=== PATIENT | male | born 1980 | race Caucasian/White ===

== ENCOUNTER 2020-01-20 18:36 | Inpatient (IN) | payer OTHER ==
[~2020-01-20] VITALS: Ht 185.4 cm; Wt 95.3 kg
[2020-01-20 18:44] VITALS: BP 129/93
[2020-01-20 19:31] LABS: ABSOLUTE BASOPHILS 0.1 thou/uL (0.0-0.2); ABSOLUTE EOSINOPHILS 0.4 thou/uL (0.0-0.7); ABSOLUTE MONOCYTES 1.1 thou/uL (0.0-1.2); ABSOLUTE NEUTROPHILS 13.1 thou/uL (1.6-8.1); BASOPHILS 0.3 %; EOSINOPHILS 2.3 %; HEMATOCRIT 49.6 % (42.0-52.0); HEMOGLOBIN 17.5 gm/dL (14.0-18.0); MCH 31.5 pg (26.0-34.0); MCHC 35.3 g/dL (28.0-37.0); MCV 89.2 fL (80.0-100.0); MONOCYTES 6.7 %; MPV 7.9 fl. (7.2-11.1); NUCLEATED RBCS 0 /100WBC; PLATELET COUNT* 338 thou/uL (150-400); POLYS 78.7 %; RBC 5.56 mil/uL (4.50-6.00); RDW-CV 13.8 % (10.5-14.5); WBC 16.6 thou/uL (4.0-11.0)
[2020-01-20 19:35] LABS: CREATININE 1.1 mg/dL (0.6-1.3); POTASSIUM 3.9 mmol/L (3.5-5.1)
[2020-01-20 19:40] LABS: ALBUMIN 3.6 g/dL (3.4-5.0); TOTAL BILIRUBIN 0.7 mg/dL (<0.1-1.0); TOTAL PROTEIN 8.4 g/dL (6.4-8.2)
[2020-01-20 21:59] VITALS: BP 123/81
--- NOTE | 2020-01-21 06:52 | NUR ---
PATIENT UP FROM ER TO ROOM 119. PT ALERT/ORIENTED X4, PLEASANT. PT SAID WOUNDS ON FEET STARTED THREE DAYS AGO AND PAIN BECAME INTOLERABLE SO CAM TO HOSPITAL. RT FOOT WITH RED, WARM EDEMA ON ANKLE AND TOP OF FOOT. BOTTOM OF FOOOT (BALL OF FOOT) WITH GREEN/YELLOW PURULENT WEEPING DRAINAGE. LT FOOT WITH WHAT APPEARS TO BE AN ATHELETE'S FOOT FUNGUS WITH GREEN/YELLOW WEEPING DRAINAGE BETWEEN TOES. FEET AND TOES CLEANED WITH WOUND SPRAY, PATTED DRY WITH 4X4 GAUZE AND GAUZE PLACED OVER BALL OF FOOT ON RT FOOT, WRAPPED WITH FLUFF GAUZE. LT FOOT CLEANED WITH WOUND SPRAY, PATTED DRY AND DRIED BETWEEN TOES. 4X4 GAUZE FOLDED AND PLACED BETWEEN DOES, WRAPPED WITH FLUFF GAUZE. PT INSTRUCTED TO CALL FOR ASSISTANCE PRIOR TO GETTING OUT OF BED. PT ORIENTED TO ROOM/POLICIES AND VERBALIZES UNDERSTANDING. PT GIVEN TORADOL IN ER BUT DENIES NEEDS FOR PAIN MEDS AT THIS TIME. WILL CONTINUE TO MONITOR.
[2020-01-21 08:00] VITALS: BP 121/73
[2020-01-21 15:44] VITALS: BP 133/70
--- NOTE | 2020-01-21 19:06 | NUR ---
PATIENT RESTING IN BED. PATIENT HAS COMPLAINTS OF PAIN TO FEET, TREATED ADEQUATELY WITH HYDROCODONE. PATIENT USES URINAL. PATIENT HAS GOOD APPETITE. PATIENT DENIES ANY NEEDS AT THIS TIME. CALL LIGHT WITHIN REACH.
[2020-01-22 02:08] LABS: GLYCOHEMOGLOBIN (HGB A1C) 5.4 % (4.8-5.6)
--- NOTE | 2020-01-22 04:05 | NUR ---
PATIENT SLEPT WELL DURING THIS SHIFT. VANCOMYACIN ALMOST COMPLETE WHEN IV IN LT UPPER ARM INFUSED NEAR ELBOW. NEW IV STARTED IN RT AC AND FLUIDS CONTINUED ORDERED. PT VOIDS DARK YELLOW URINE PER URINAL. PT ENCOURAGED TO CALL IF NEEDING TO GO TO BATHROOM FOR BM. 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 PT DID NOT ASK FOR PAIN MEDICATION. PT IS PLEASANT, COOPERATIVE. FREQUENTLY USED ITEMS AND CALL LIGHT WITHIN REACH. SIDERAILS UPX2. WILL CONTINUE TO MONITOR.
[2020-01-22 08:10] VITALS: BP 121/79
--- NOTE | 2020-01-22 08:54 | NUR ---
WOUND NURSE: PATIENT WAS SEEN BY DR. PEREZ WHO MANAGED HIS WOUND AND DRESSING CHANGE YESTERDAY. PATIENT WAS NOT SUBSEQUENTLY SEEN BY THIS NURSE A RESULT.
--- NOTE | 2020-01-22 10:28 | NUR ---
Nutrition: Pt admitted with Rt foot cellulitis and Lt foot ulcer. Wt: 210#. Vanc. Regular diet, good appetite. BG 167, albumin 3.6. Protein stores are adequate, will not order protein supplement at this time. Appears nutritionally stable. GOAL: continue good po and protein intake at meals, control BG. Low risk.
--- NOTE | 2020-01-22 11:29 | CON ---
[address] [address] CONSULTATION Name: COLE HERRING Room: [address] IN M.R.#: [id number] Admission: 01/20/20 Attend Phys: Phillip Vega Discharge: Date of : 76 Report #: [id number] THIS REPORT FOR: //name// cc: JORDAN Ye family physician/PCP JORDAN Ye family physician/PCP ~ THIS REPORT FOR: //name// CC: JORDAN physician/PCP Phillip Girard DATE OF SERVICE: 01/21/2020 INFECTIOUS DISEASE CONSULTATION ATTENDING PHYSICIAN: Phillip Girard MD REASON FOR EVALUATION: Inflammatory process involving the left foot, suspected skin and soft tissue infection with cellulitis, plantar ulcerations bilaterally. HISTORY OF PRESENT ILLNESS: Chart reviewed, patient examined. This is a 39-year-old male who reportedly has not been aware of any significant past medical history, who came to the ER complaining of right foot pain with associated redness 3 days prior. Denies any antecedent injury. 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 He did note some generalized systemic illness with body aches and chills, nausea day prior to admission. Evaluation noted elevated white count of 16.6, glucose of 167, lactic acid 1.9. Plain film of the right foot suggested plantar ulcer. No bony abnormalities. Blood cultures now with 1 out 2 Gram-positive christine. He is empirically started on antibiotics with ceftriaxone and vancomycin. He is not overtly toxic. Denies any pulmonary or gastrointestinal-related complaints. No other exposure history that he is aware of. ALLERGIES: None known. CURRENT MEDICINES: Include ceftriaxone, vancomycin, hydrocodone, ondansetron as needed. PAST MEDICAL HISTORY: Otherwise, unremarkable. There is question of some new onset hyperglycemia. SOCIAL HISTORY: A [id number] history of smoking 1 pack a day. Does use marijuana. No injection drug use. No ethanol. FAMILY HISTORY: Noncontributory. REVIEW OF SYSTEMS: Otherwise, [place] [address] CONSULTATION Name: COLE HERRING Room: [address] IN [facility]#: [id number] Admission: 01/20/20 Attend Phys: Phillip Vega Discharge: Date of : 76 Report #: [id number] PHYSICAL EXAMINATION: GENERAL: He is alert, cooperative, in mild distress. He is generally lucid, appears reasonably well nourished. VITAL SIGNS: Temperature 98.3, pulse 84, respirations 16, blood pressure 120/73. SKIN: Warm, dry. He has extensive tattoos. HEENT: Normocephalic. Extraocular muscles intact. NECK: Supple. LUNGS: Otherwise clear breath sounds. HEART: Regular. I do not appreciate any murmur. ABDOMEN: Soft, nontender, no peritoneal signs. EXTREMITIES: Bilateral lower extremities have dressings in place. Did review the photographs taken earlier today because of necrotic changes with blackened eschar over the plantar aspect of the feet, has moderate degree of inflammation. GENITOURINARY: Deferred. RECTAL: Deferred. LABORATORY DATA: CBC: White count 16.6, H and H 17.5 and 49.6, platelets of 338. Differential unremarkable with the exception of neutrophilia. Electrolytes: Sodium 135, potassium 3.9, chloride 99, bicarbonate is 29, anion gap of 7, BUN and creatinine 14 and 1.1, glucose of 167. LFTs unremarkable. Albumin 3.6, total protein of 8.4. Lactic acid of 1.9. Foot x-ray as described above. Blood culture 1 out 2 with Gram-positive christine. ASSESSMENT AND PLAN: Bilateral distal lower extremity wounds complicated by infection. It certainly raises suspicion for some underlying issues such as diabetes mellitus. It is reasonable to check a hemoglobin A1c. Continue wound care as prescribed, empiric antimicrobial should give as reasonable coverage. At this point, he is not overtly toxic. We will add incentive spirometry to his overall regimen. He may end up needing debridement of the wounds. <ELECTRONICALLY SIGNED> By: Cole Pritchett MD 01/22/20 1129 1310 [id number] Pritchett MD /nt
[2020-01-22 16:00] VITALS: BP 133/84
--- NOTE | 2020-01-22 18:51 | NUR ---
PATIENT RESTING IN BED. PATIENT HAS COMPLAINTS OF PAIN TREATED ADEQUATELY WITH PO PAIN MEDICATION. DRESSING REAPPLIED THIS AFTERNOON AFTER REMOVED BY PHYSICIAN. ORDER RECEIVED FOR BREAKTHROUGH PAIN MEDICATION WITH DRESSING CHANGES. PATIENT DENIES ANY NEEDS AT THIS TIME. CALL LIGHT WITHIN REACH.
[2020-01-22 20:00] VITALS: BP 136/82
--- NOTE | 2020-01-23 06:22 | NUR ---
ASSESSMENTS COMPLETED AT BEDSIDE, PLEASE REFER TO CHARTING. MEDICATIONS ADMINISTERED PER MAR. HOURLY ROUNDING COMPLETED FOR SAFETY. PT IN BED WITH CALL LIGHT WITHIN REACH. PT NON-WEIGHT BEARING, CALLS OUT APPROPRIATELY.
[2020-01-23 08:20] VITALS: BP 122/70
[2020-01-23 16:00] VITALS: BP 137/86
--- NOTE | 2020-01-23 16:30 | NUR ---
SPOKE WITH PT.IN ROOM. HE SAID HE LIVES WITH HIS GIRLFRIEND AND KIDS IN AN APT. 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 JUST GOT HIS JOB BACK AT [employer] BEFORE THIS SO NOT SURE IF HE WILL HAVE IT WHEN HE IS ABLE TO GO BACK TO WORK. HE HAS CRUTCHES BUT ARE TOO SHORT FOR HIM. TOLD HIM THE HOSPITAL COULD PROVIDE A PAIR FOR HIM BUT HE WOULD HAVE TO SIGN PAPER THAT HE WOULD PAY FOR THEM. THEY WOULD BE PUT ON HIS HOSPITAL BILL. HE COULD ALSO GET SOME POSSIBLY AT A [employer]. RECOMMENDS WOUND CARE. TOLD HIM IF HE QUALIFIED FOR [facility], HE COUDL GO THERE FOR WOUND CARE. WILL PUT PHONE NUMBER ON DISCHARGE INSTRUCTIONS FOR HIM TO CALL TO DISCUSS. HE THINKS HE CAN AFFORD HIS ORAL ANTIBIOTIC AT DISCHARGE. HE WOULD LIKE NURSE TO CALL IN TO [facility] ON [address] ([facility]) TO SEE HOW MUCH THEY WILL BE. HE SAID HIS MOM TOLD HIM SHE WOULD PAY FOR THEM IF THEY ARE TOO MUCH FOR HIM. [id number].
[2020-01-23 19:33] VITALS: BP 137/86
--- NOTE | 2020-01-23 19:37 | NUR ---
PATIENT RESTING IN BED. PATIENT HAS COMPLAINTS OF PAIN TO FEET, TREATED ADEQUTELY WITH MEDICATION AND REST. PATIENT SEEN BY DR PEREZ THIS EVENING AND DRESSING CHANGED TO RIGHT FOOT. PATIENT RECEIVING ANTIBIOTICS ORDERED. PATIENT DENIES ANY NEEDS AT THIS TIME. CALL LIGHT WITHIN REACH.
[2020-01-23 20:30] VITALS: BP 115/64
--- NOTE | 2020-01-24 07:37 | NUR ---
PT SLEPT OFF AND ON OVERNIGHT. USING URINAL TO VOID WITHOUT DIFFICULTY. PO PAIN MED GIVEN AT HS WITH GOOD RESULT. DRSG CDI TO R FOOT. RFA IVF INFUSING PER PUMP, ABX GIVEN ORDERED. NO LABS THIS MORNING. CM FOLLOWING PT WILL NEED WOUND CARE OUTPT. ABLE TO USE CALL LITE AND MAKE NEEDS KNOWN.
[2020-01-24 07:40] VITALS: BP 141/76
[2020-01-24 13:56] LABS: ABSOLUTE BASOPHILS 0.1 thou/uL (0.0-0.2); ABSOLUTE EOSINOPHILS 0.6 thou/uL (0.0-0.7); ABSOLUTE LYMPHOCYTES 2.2 thou/uL (0.8-5.3); ABSOLUTE MONOCYTES 0.7 thou/uL (0.0-1.2); ABSOLUTE NEUTROPHILS 8.6 thou/uL (1.6-8.1); BASOPHILS 0.9 %; EOSINOPHILS 4.5 %; HEMATOCRIT 49.1 % (42.0-52.0); MCH 31.4 pg (26.0-34.0); MCHC 34.7 g/dL (28.0-37.0); MCV 90.7 fL (80.0-100.0); MONOCYTES 5.8 %; MPV 7.2 fl. (7.2-11.1); NUCLEATED RBCS 0 /100WBC; PLATELET COUNT* 376 thou/uL (150-400); POLYS 70.8 %; RBC 5.41 mil/uL (4.50-6.00); RDW-CV 13.7 % (10.5-14.5); WBC 12.2 thou/uL (4.0-11.0)
[2020-01-24 14:09] LABS: CALCIUM 8.5 mg/dL (8.5-10.1); POTASSIUM 4.5 mmol/L (3.5-5.1); TOTAL BILIRUBIN 0.3 mg/dL (<0.1-1.0); TOTAL PROTEIN 7.8 g/dL (6.4-8.2)
--- NOTE | 2020-01-24 16:13 | NUR ---
PATIENT VOIDING PER URINAL. IV SL THIS EVENING PER ORDERS. DR. CASTILLO AND DR. OLIVAS NOTIFIED OF FOOT WOUND CULTURE RESULTS. DR. CASTILLO DC'D PCN IV AND ORDERED CEFAZOLIN. PATIENT AWARE OF NEW PLAN OF CARE. DRESSING TO RIGHT FOOT INTACT, SPOKE WITH DR. PEREZ AND WILL SEE PATIENT THIS EVENING AND CHANGE DRESSING. PATIENT HAS PERSONAL PHONE AND IS IN CONTACT WITH FAMILY ON PLAN OF CARE.
[2020-01-24 17:38] VITALS: BP 142/73
[2020-01-24 19:30] VITALS: BP 135/75
--- NOTE | 2020-01-25 05:30 | NUR ---
PT ALERT AND ORIENTED. PT SLEPT WELL THIS SHIFT. MEDS GIVEN PER EMAR. PT DENIED PAIN THIS SHIFT. DRESSING C/D/I. FALL PRECAUTION IN PLACE. HOURLY ROUNDIGNS MADE. WILL CONTINUE TO MONITOR.
[2020-01-25 08:30] VITALS: BP 112/53
--- NOTE | 2020-01-25 16:12 | NUR ---
PATIENT UP AND SHOWERED THIS AM. WOUND DRESSING TO FOOT CHANGED PER PROTOCOL AND SUNDAY PHOTO OBTAINED. IV ABX GIVEN ORDERED, OTHERWISE IV SL. PATIENT VOIDING LARGE AMOUNTS OF URINE PER URINAL. POST OP SHOE ORDERED FOR PATIENT. POSSIBLE DISCHARGE TOMORROW.
[2020-01-25 20:00] VITALS: BP 134/72
[2020-01-26 04:07] LABS: HEMATOCRIT 50.1 % (42.0-52.0); HEMOGLOBIN 17.7 gm/dL (14.0-18.0); MCH 31.6 pg (26.0-34.0); MCHC 35.3 g/dL (28.0-37.0); MCV 89.5 fL (80.0-100.0); MPV 7.3 fl. (7.2-11.1); RBC 5.6 mil/uL (4.50-6.00); RDW-CV 13.7 % (10.5-14.5); WBC 12.2 thou/uL (4.0-11.0)
[2020-01-26 04:30] LABS: CALCIUM 8.7 mg/dL (8.5-10.1); CREATININE 1.1 mg/dL (0.6-1.3); POTASSIUM 4.3 mmol/L (3.5-5.1)
--- NOTE | 2020-01-26 07:22 | NUR ---
PT SLEPT WELL THIS SHIFT. MEDS GIVEN PER EMAR. DR PEREZ CALLED TO CONFIRM I&D TODAY @ NOON. DAYSHIFT NURSE INFORMED. CALL LIGHT WITHIN REACH. HOURLY ROUNDINGS MADE. WILL CONTINUE TO MONITOR.
[2020-01-26 08:30] VITALS: BP 122/68
[2020-01-26] MEDS ORDERED: HYDROCODON-ACE1 EAC7 PO (11:51)
[2020-01-26] MEDS ORDERED: AUGMENTIN 875-1 EACH PO (12:30)
[2020-01-26] MEDS ORDERED: DIFLUCAN200 MG PO (12:31)
[2020-01-26 12:35] VITALS: BP 137/86
[2020-01-26 12:38] VITALS: BP 137/86
[2020-01-26 15:08] VITALS: BP 137/86
--- NOTE | 2020-01-26 15:44 | NUR ---
PATIENT DISCHARGED FROM UNIT AT 1537. ALERT AND ORIENTED X 4. VITAL SIGNS STABLE ON ROOM AIR. UP WITH ASSISTANCE TO WHEELCHAIR. ORTHO SHOE IN PLACE TO RIGHT FOOT. DRESSING CLEAN DRY AND INTACT. IV DISCONTINUED. DENIES PAIN AND NAUSEA AT THIS TIME. MEDICATION INFORMATION AND DISCHARGE INSTRUCTIONS GIVEN TO PATIENT. LEFT WITH ALL BELONGINGS. PATIENT LEFT WITH VIA CAR.
[2020-01-26 16:17] VITALS: BP 137/86
--- NOTE | 2020-01-26 16:43 | NUR ---
WOUND NURSE: ASSISTED DR. PEREZ WITH DRESSING CHANGE AFTER PERFORMED I&D ON PATIENT'S AFFECTED FOOT. PATIENT DISCHARGING FROM ACUTE CARE AND TO FOLLOW UP AT [facility].
--- NOTE | 2020-02-04 13:07 | CON ---
[address] [address] CONSULTATION Name: NABEEL HERRING Room: [address] IN M.R.#: [id number] Admission: 01/20/20 Attend Phys: Phillip Vega Discharge: 01/26/20 Date of : 76 Report #: [id number] THIS REPORT FOR: //name// cc: JORDAN Ye family physician/PCP JORDAN - No family physician/PCP ~ THIS REPORT FOR: //name// CC: JORDAN physician/PCP Phillip Girard DATE OF SERVICE: 01/26/2020 CHIEF COMPLAINT AND HISTORY OF PRESENT ILLNESS: Followup of ulceration with cellulitis to the right plantar foot that grew methicillin-sensitive Staph aureus and group A streptococcus. He is on parenteral cefazolin with good tolerance with planned discharge today on cephalexin. He has been afebrile, relates decreased right plantar foot pain. He maintains a good appetite. PHYSICAL EXAMINATION: There is a substantial decrease in inflammation to the right foot with complete healing of the right plantar forefoot ulcerations. No venkata cellulitis to the right distal plantar foot. The inflamed bulla at the right dorsal medial hindfoot is substantially less inflamed and more of a purple color versus bright red, as it had been. Foot is warm with palpable pedal pulses, no signs of acute vascular embarrassment. Left foot lesions are dry and healed without inflammation. LABORATORY DATA: WBC 12.2, RBC 5.60, hemoglobin 17.7, hematocrit 50.1 and platelets 380. BUN 21, creatinine 1.1, glucose 94. Albumin 3.0. IMPRESSION: Resolving cellulitis bilateral feet with healed plantar forefoot ulcerations and bulla to the right dorsal medial hindfoot. PLAN: I performed an informed consent and injected 6 mL of 1% lidocaine with epinephrine proximal to the bulla to the right hindfoot. Anesthesia was adequate and I made a 1 cm incision over the bulla and drained roughly 2 mL of sanguinous fluid with no visualized purulence. The wound was cleansed and dressed with Aquacel Ag, 4 x 4, and Kerlix gauze. The patient to ambulate in a surgical shoe and bathe his feet daily and lotion. I will follow up with him next week in my office or he can go to [facility]. <ELECTRONICALLY SIGNED> By: Vinnie Chavira DPM 02/04/20 1307 1217 [id number] Chavira DPM /nt
--- NOTE | 2020-02-04 13:07 | CON ---
[address] [address] CONSULTATION Name: NABEEL HERRING Room: [address] IN M.R.#: [id number] Admission: 01/20/20 Attend Phys: Phillip Vega Discharge: 01/26/20 Date of : 76 Report #: [id number] THIS REPORT FOR: //name// cc: JORDAN Ye family physician/PCP JORDAN - Cassi family physician/PCP ~ THIS REPORT FOR: //name// CC: JORDAN physician/PCP Phillip Girard DATE OF SERVICE: 01/21/2020 ADMISSION DIAGNOSIS: Diabetic ulceration, right foot with cellulitis. HISTORY OF PRESENT ILLNESS: The patient is a 39-year-old male admitted for worsening cellulitis to the right plantar foot. He first noticed some open lesions roughly 4 days ago of unknown etiology. He denies walking barefoot on hot surfaces, submersion, blisters or any type of trauma to the foot. He has several wounds to the left first, second, third interdigital spaces. He is on parenteral vancomycin and ceftriaxone. Admission wound cultures growing gram-negative rods, gram-positive rods, and gram-positive cocci. Blood cultures pending with no growth so far. He has high-grade pain to the right foot, exquisitely painful to light touch. He has been afebrile since admission. X-rays were negative for subcutaneous emphysema or signs of osteomyelitis. LABORATORY DATA: WBC 16.6, RBC 5.56, hemoglobin 17.5, hematocrit 49.6, platelets 338. BUN 14, creatinine 1.1, glucose 167. PHYSICAL EXAMINATION: Large full thickness ulceration to the right plantar forefoot encompassing nearly the entire ball of the foot. The wound is roughly 40% granulation and 60% yellowish pale slough. There is localized inflammation to the plantar foot extending to the dorsal aspect and lower ankle consistent with cellulitis. The foot is exquisitely tender to the touch. He has several full thickness ulcerations to the interdigital spaces of the left foot with minimal inflammation and no venkata cellulitis. He has palpable dorsalis pedis and posterior tibial pulses bilaterally with immediate digital capillary refill. IMPRESSION: Bilateral foot ulcerations, right is severely involved including most of the ball of the foot. PLAN: I do not anticipate any surgical debridement. Continue parenteral antibiotics and await culture results. I cleansed the right foot wound and dressed it with petroleum Xeroform gauze, ABD and Kerlix gauze. The patient to remain strictly nonweightbearing to the right foot. [place] [address] CONSULTATION Name: NABEEL HERRING Room: [address] IN M.R.#: [id number] Admission: 01/20/20 Attend Phys: Phillip Vega Discharge: 01/26/20 Date of : 76 Report #: [id number] day or 2, we will transition to partial weightbearing to the heel in a surgical shoe with crutches. <ELECTRONICALLY SIGNED> By: Vinnie Chavira DPM 02/04/20 1307 1547 [id number] Chavira DPM /nt
--- NOTE | 2020-02-04 13:07 | CON ---
[address] [address] CONSULTATION Name: NABEEL HERRING Room: [address] IN M.R.#: [id number] Admission: 01/20/20 Attend Phys: Phillip Vega Discharge: 01/26/20 Date of : 76 Report #: [id number] THIS REPORT FOR: //name// cc: JORDAN Ye family physician/PCP JORDAN - No family physician/PCP ~ THIS REPORT FOR: //name// CC: JORDAN physician/PCP Phillip Girard DATE OF SERVICE: 01/24/2020 CHIEF COMPLAINT AND HISTORY OF PRESENT ILLNESS: Follow up right plantar forefoot ulceration with cellulitis, etiology unknown. Cultures grew methicillin-sensitive Staph aureus and group A streptococcus. His antibiotics were switched from penicillin to the cefazolin today. Pain is roughly the same, he has been afebrile, good appetite, remains nonweightbearing to the foot. PHYSICAL EXAMINATION: Decreased inflammation to the right distal forefoot with open ulceration at ____ bulla to the right dorsal medial hindfoot that is tender to palpation. No signs of acute vascular embarrassment. No exposed bone, tendon or joint to the right plantar forefoot with less pale slough. IMPRESSION: Right plantar forefoot ulceration with cellulitis. PLAN: The right foot wound was cleansed and dried and dressed with Xeroform, ABD and Kerlix gauze. The patient may perform heel weightbearing in a surgical shoe with crutches. <ELECTRONICALLY SIGNED> By: Vinnie Chavira DPM 02/04/20 1307 1701 [id number] Chavira DPM /nt
--- NOTE | 2020-02-04 13:07 | CON ---
[address] [address] CONSULTATION Name: NABEEL HERRING Room: [address] IN M.R.#: [id number] Admission: 01/20/20 Attend Phys: Phillip Vega Discharge: 01/26/20 Date of : 76 Report #: [id number] THIS REPORT FOR: //name// cc: JORDAN Ye family physician/PCP JORDAN - Cassi family physician/PCP ~ THIS REPORT FOR: //name// CC: JORDAN physician/PCP Phillip Girard DATE OF SERVICE: 01/23/2020 CHIEF COMPLAINT AND HISTORY OF PRESENT ILLNESS: Followup of ulceration to right plantar forefoot and interdigital spaces growing group A strep and methicillin-sensitive Staph aureus. He is on parenteral penicillin G. He has good appetite, he has been afebrile with stable vitals during admission. His pain is decreased, but still fairly advanced, which he rates as 7/10. He has remained nonweightbearing during his hospitalization. There are no new labs for review. PHYSICAL EXAMINATION: There is decreased inflammation to the right plantar forefoot with slightly less slough. There is a large area of ulceration to the forefoot encompassing the first through fifth metatarsophalangeal joint region extending into the interdigital spaces. There is no exposed plantar fascia, tendon, bone or joint. There is an erythematous region to the right anterior medial hindfoot overlying the talonavicular joint region with no open ulceration. The left foot has some dry scabs to the plantar forefoot and interdigital spaces with no inflammation or drainage. No signs of vascular embarrassment with strong pedal pulses to both extremities. IMPRESSION: Right forefoot ulceration with cellulitis. PLAN: The wound was cleansed, dried and dressed with petroleum Xeroform, ABD and Kerlix gauze. The patient may transition to partial weightbearing to the heel with crutches as tolerated. If this is not tolerated, then he is to remain nonweightbearing. I recommend he followup with [facility] due to lack of health care insurance, although I will be happy to see him in my office as I discussed with him. <ELECTRONICALLY SIGNED> By: Vinnie Chavira DPM 02/04/20 1307 1656 Dkitty Chavira DPM /nt
== END 2020-01-26 15:37 | disposition home or self-care (01) | DRG 603 ==
LOC: M.ERS 18:36 → M.TBA-ER 19:42 → M.ORTHSURG 19:42
PROVIDERS: Internal Medicine; Physician Assistant; Specialist; ADMIT Family Medicine; ATTEND Family Medicine
DX: L03.115 Cellulitis of right lower limb (principal); E87.1 Hypo-osmolality and hyponatremia; F17.210 Nicotine dependence, cigarettes, uncomplicated; E11.621 Type 2 diabetes mellitus with foot ulcer; L03.116 Cellulitis of left lower limb; E11.65 Type 2 diabetes mellitus with hyperglycemia; R00.0 Tachycardia, unspecified; D72.829 Elevated white blood cell count, unspecified; L97.519 Non-pressure chronic ulcer of other part of right foot with unspecified severity; B35.3 Tinea pedis; B95.0 Streptococcus, group A, as the cause of diseases classified elsewhere; B95.61 Methicillin susceptible Staphylococcus aureus infection as the cause of diseases classified elsewhere